=== PATIENT | male | born 2005 | race Caucasian/White ===

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

== ENCOUNTER 2024-11-23 03:34 | Emergency (ER) | payer OTHER, SELFPAY ==
[2024-11-23 03:36] VITALS: BP 170/99; PULSE 81; RESP 18; TEMP 35.9; O2SAT 98
[2024-11-23 03:39] VITALS: BP 170/99; PULSE 88; RESP 18
[2024-11-23 03:43] VITALS: RESP 18
--- NOTE | 2024-11-23 03:44 | W.ED.GENAD ---
Discharge Plan Disposition Patient Disposition: Home Condition: Good Discharge Details Chief Complaint: SOB Clinical Impression: Asthma attack ED Provider: Chaim Reyes Home Meds and New Rx's Prescriptions: No Action (DME) Aerochamber Plus Flow-Vu 1 EACH spacer 1 ea Miscellaneous PRN Qty: 1 Rx Instructions: USE WITH PRO-AIR INHALER albuterol sulfate 90 mcg/actuation HFA aerosol inhaler See Rx Instructions .ROUTE .COMPLEX Qty: 8.5 1RF Dose Instruction: INHALE 2 PUFFS BY MOUTH EVERY 15 MIN PRIOR TO EXERCISE/COLD AIR EXPOSURE AND EVERY 4 HOURS NEEDED FOR WHEEZING Rx Instructions: INHALE 2 PUFFS BY MOUTH EVERY 15 MIN PRIOR TO EXERCISE/COLD AIR EXPOSURE AND EVERY 4 HOURS NEEDED FOR WHEEZING Discharge Instructions Instructions: Asthma, Adult ED Additional Instructions: At this time you do have an episode of an asthma attack. Please take your inhaler, 2 puffs every 4-6 hours. If you do change your mind at any point, please do not hesitate to return for any breathing treatment administration. If you notice any worsening of your symptoms, or any new symptoms such as vomiting, diarrhea, fever, chills, shortness of breath, chest pain, numbness, weakness, or fainting , please return immediately to the emergency department for reevaluation. Please follow up with your primary care provider as soon as possible for reassessment and reevaluation. As always, it was a pleasure participating in your medical care today. HPI General Date/Time Provider Initiated Documentation: 11/23/24 03:40. HPI Narrative: 19-year-old male with no significant past medical history except for panic attacks and asthma, presents today for evaluation of an asthma attack. Patient normally has his inhaler, he got a prescription for refill, but has not had it filled at the pharmacy yet. It should be available in the next 24 to 48 hours. He states that he woke up at 3 AM this morning and had a mild wheeze. Normally he would just take his inhaler but he was not able to since he did not have 1. He denies any fever or chills. No recent cough. No change in medications otherwise. No other complaints at this time. Related Data Home Medications ?Medication ?Instructions ?Recorded ?Confirmed inhalational spacing device ##1 03/05/16 11/30/23 (Aerochamber Plus Flow-Vu) albuterol sulfate 90 mcg/actuation See Rx Instructions .Route 08/09/24 aerosol inhaler .COMPLEX #8.5 grams Previous Rx's ?Medication ?Instructions ?Recorded albuterol sulfate 90 mcg/actuation See Rx Instructions .Route 08/09/24 aerosol inhaler .COMPLEX #8.5 grams Allergies Allergy/AdvReac Type Severity Reaction Status Date / Time No Known Drug Allergies Allergy Other (See Verified 11/24/23 15:46 Comment) CATS AdvReac Intermediate EYES GET Uncoded 11/24/23 15:46 PUFFY, RUNNY NOSE General Stated Complaint: SOB TIEN: 3 Exam Narrative Exam Narrative: 1.Const: Well-nourished, Well-developed, appearing stated age 2.Eyes: PERRL, no conjunctival injection, and symmetrical lids. 3.ENT: Atraumatic external nose and ears. Moist MM. Neck: Symmetric, trachea midline, No thyromegaly. 4.CVS: +S1/S2, Peripheral pulses 2+ and equal in all extremities. Brisk capillary refill in all extremities. 5.RESP: Mild inspiratory and expiratory wheeze. No crackles or rales. No rhonchi. No intercostal retractions or respiratory distress 6.GI: Soft, Nontender/Nondistended, No hepatosplenomegaly. No guarding or rebound. 7.MSK: Normocephalic/Atraumatic, Extremities w/o deformity or ttp No cyanosis or clubbing, Normal movement of all extremities 8.Skin: Warm, Dry. No rashes or lesions. 9.Neuro: advertising account representative II-XII grossly intact. Sensation grossly intact, no focal neurologic deficits. 10.Psych: (AAO) x3. Appropriate mood and affect Course Vital Signs Vital signs: Vital Signs Temperature 35.9 C L 11/23/24 03:36 Pulse 81 11/23/24 03:36 Respiratory Rate 18 11/23/24 03:36 Blood Pressure 170/99 H 11/23/24 03:36 Pulse Oximetry 98 11/23/24 03:36 Temperature 35.9 C L 11/23/24 03:36 Pulse 88 11/23/24 03:39 Respiratory Rate 18 11/23/24 03:39 Blood Pressure 170/99 H 11/23/24 03:39 Pulse Oximetry 98 11/23/24 03:36 Oxygen Delivery Method Room Air 11/23/24 03:36 Oxygen Flow Rate 0 11/23/24 03:36 Pain Level 0 11/23/24 03:36 Medical Decision Making 19-year-old male with no significant past medical history except for panic attacks and asthma, presents today for evaluation of an asthma attack. Patient normally has his inhaler, he got a prescription for refill, but has not had it filled at the pharmacy yet. It should be available in the next 24 to 48 hours. He states that he woke up at 3 AM this morning and had a mild wheeze. Normally he would just take his inhaler but he was not able to since he did not have 1. He denies any fever or chills. No recent cough. No change in medications otherwise. No other complaints at this time. Exam demonstrates well-appearing male, mild wheezes, no intercostal retractions, no respiratory distress. Signs and symptoms appear consistent with mild asthma exacerbation. No hypoxemia or significant respiratory difficulty to suggest need for oral steroid. I did offer breathing treatments to the patient to help, but he has declined, stating that I am just here to get an inhaler, that is all I need. I would like to go home. I discussed risks and benefits of treatment options, and patient persists that he would like an inhaler to use and go home. As he demonstrates no evidence of significant respiratory distress, I do feel that this is reasonable. Patient will be given an inhaler. No crackles or rhonchi to suggest pneumonia. No indication for emergent x-ray. Patient will be discharged home. Discussed red flags for which to return. I have extensively reviewed the treatment plan and discharge instructions with the patient. I have addressed all patient concerns at this time. The patient was made aware of what symptoms to monitor for that would warrant a return to the emergency department. Discussed the plan with the patient, they demonstrate verbal understanding and agreement with our assessment and plan at this time. The documentation in this chart was dictated using [employer] dictation software. Please excuse any dictation errors. Quality:SDOH Health Related Social Needs: No Data to Display PFSH All Active Problems (Updated 11/23/24 @ 03:45 by Chaim Reyes DO) Asthma attack (Acute) Elevated blood pressure reading (Acute) Alcohol use disorder, mild, abuse (Acute) Mild intermittent asthma (Chronic) Exercise-induced Panic attack (Acute) Acne (Acute) cystic and scarring Medical History Post covid-19 condition, unspecified Palpitations Evaluation with peds cardiology 11/2021- normal holter and normal ECHO Family History Father Asthma outgrown Grandmother Substance abuse Diabetes diet/weight related Hyperlipidemia Cancer Asthma Mother Hypertensive disorder, systemic arterial borderline Grandfather Hypertensive disorder, systemic arterial Substance abuse Cancer Social History (Updated 11/24/23 @ 15:48 by Dayna Lan RN) Smoking/Tobacco Use Status: Current-Occasional Tobacco Type: e-cigarettes Second Hand Exposure: No Smoking risk assessment performed?: Yes Alcohol Intake: current Alcohol Intake frequency: a few times a month Alcohol type: beer Drug use: Never Adopted: No Foster care: No Household members: family Housing: house Number of Children: 0 number of grandchildren: 0 Communication Needs: Corrective Lenses Education Level: other Details: Graduated HS and 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
[2024-11-23] MEDS: Albuterol HFA 8 GM 60 PUFF INH IH (03:46)
== END 2024-11-23 03:50 | disposition home or self-care (01) ==
LOC: ER 03:56
PROVIDERS: Emergency Provider Student in an Organized Health Care Education/Training Program
DX: J45.901 Unspecified asthma with (acute) exacerbation (principal); F17.290 Nicotine dependence, other tobacco product, uncomplicated
CPT/HCPCS: 99283